=== PATIENT | female | born 1985 | race Caucasian/White ===

== ENCOUNTER 2018-11-16 08:00 | Outpatient (CLI) | payer OTHER | END 2018-11-16 23:59 | disposition home or self-care (01) | LOC: LAB.R 08:00 | PROVIDERS: ATTEND Family Medicine | DX: N12 Tubulo-interstitial nephritis, not specified as acute or chronic (principal) | CPT/HCPCS: 87086; 87181 ==

== ENCOUNTER 2018-12-11 08:00 | Outpatient (CLI) | payer OTHER ==
[2018-12-11 21:52] LABS: CANDIDA GROUP DNA POSITIVE (NEGATIVE); CANDIDA KRUSEI DNA NEGATIVE (NEGATIVE); TRICHOMONAS VAGINALIS DNA NEGATIVE (NEGATIVE)
== END 2018-12-11 23:59 | disposition home or self-care (01) ==
LOC: LAB.WCP 08:00
PROVIDERS: ATTEND Family Medicine
DX: A60.00 Herpesviral infection of urogenital system, unspecified (principal)
CPT/HCPCS: 36415; 81599; 86695; 86696; 87661; 87801

== ENCOUNTER 2019-05-20 12:00 | Outpatient (CLI) | payer OTHER ==
[2019-05-20 19:01] LABS: HCG,QUALITATIVE BLOOD NEGATIVE
[2019-05-20 19:38] LABS: FOLLICLE STIMULATING HORMONE 8.07 mIU/mL
[2019-05-20 19:39] LABS: LUTEINIZING HORMONE 9.83 mIU/mL
[2019-05-21 15:01] LABS: HIV AG/AB 4TH GEN NON-REACTIVE (NON-REACTIVE)
== END 2019-05-20 23:59 | disposition home or self-care (01) ==
LOC: LAB.WCP 12:00
PROVIDERS: ATTEND Family Medicine
DX: N76.0 Acute vaginitis (principal); Z11.3 Encounter for screening for infections with a predominantly sexual mode of transmission; N95.1 Menopausal and female climacteric states
CPT/HCPCS: 36415; 81599; 83001; 83002; 84443; 84703; 86592; 87389

== ENCOUNTER 2020-02-16 17:22 | Outpatient (CLI) | payer OTHER ==
[2020-02-16 19:29] LABS: TRICHOMONAS VAGINALIS DNA NEGATIVE (NEGATIVE)
== END 2020-02-16 23:59 | disposition home or self-care (01) ==
LOC: LAB.R 17:22
PROVIDERS: ATTEND Obstetrics & Gynecology
DX: Z11.3 Encounter for screening for infections with a predominantly sexual mode of transmission (principal)
CPT/HCPCS: 87491; 87591; 87661

== ENCOUNTER 2020-03-10 11:55 | Outpatient (CLI) | payer OTHER ==
[2020-03-10 12:15] LABS: BASOPHILS % (AUTO) 0.5 %; EOSINOPHILS # (AUTO) 0.2 10^3/uL (0.0-0.7); HGB - HEMOGLOBIN 14.6 g/dL (12.0-16.0); LYMPHOCYTES # (AUTO) 1.9 10^3/uL (1.5-3.5); LYMPHOCYTES % (AUTO) 32.8 %; MEAN CORPUSCULAR HGB CONC 34.6 g/dL (32.0-36.0); MEAN CORPUSCULAR VOLUME 92.5 fL (81.0-99.0); MEAN PLATELET VOLUME 9.4 fL (7.9-10.8); MONOCYTES # (AUTO) 0.5 10^3/uL (0.0-1.0); MONOCYTES % (AUTO) 9.4 %; NEUTROPHILS # (AUTO) 3.1 10^3/uL (1.5-6.6); NEUTROPHILS % (AUTO) 54.1 %; PLT - PLATELET COUNT 238 10^3/uL (130-450); RED BLOOD COUNT 4.56 10^6/uL (4.20-5.40); RED CELL DISTRIBUTION WIDTH 11.9 % (12.0-15.0); WHITE BLOOD COUNT 5.7 x10^3/uL (4.8-10.8)
== END 2020-03-10 11:56 | disposition home or self-care (01) ==
LOC: LAB 11:55
PROVIDERS: ATTEND Obstetrics & Gynecology
DX: Z01.818 Encounter for other preprocedural examination (principal); R87.811 Vaginal high risk human papillomavirus (HPV) DNA test positive; R87.612 Low grade squamous intraepithelial lesion on cytologic smear of cervix (LGSIL); E28.2 Polycystic ovarian syndrome; Z20.828 Contact with and (suspected) exposure to other viral communicable diseases
CPT/HCPCS: 36415; 85025

== ENCOUNTER 2020-03-15 10:37 | Day surgery (SDC) | payer OTHER ==
[2020-03-15] MEDS ORDERED: DEXAMETHASONE 4 MG/ML VIAL IVP ONE (10:38)
[2020-03-15] MEDS ORDERED: ePHEDrine 50 MG/ML VIAL IVP ONE (10:38)
[2020-03-15] MEDS ORDERED: LIDOCAINE-MPF 2% 5 ML VIAL IM ONE (10:38)
[2020-03-15] MEDS ORDERED: PROPOFOL 200 MG/20 ML VIAL IVP ONE (10:38)
[2020-03-15] MEDS ORDERED: GLYCOPYRROLATE 1 MG/5 ML VIAL IVP ONE (10:38)
[2020-03-15] MEDS ORDERED: MIDAZOLAM 2 MG/2 ML VIAL IVP ONE (10:38)
[2020-03-15] MEDS ORDERED: ONDANSETRON 4 MG/2 ML VIAL IVP ONE (10:38)
[2020-03-15] MEDS ORDERED: NEOSTIGMINE 1 MG/1 ML 10 ML MDV IVP ONE (10:38)
[2020-03-15] MEDS ORDERED: fentaNYL 100 MCG/2 ML VIAL IVP ONE (10:38)
[2020-03-15] MEDS ORDERED: ACETAMINOPHEN 1,000 MG/100 ML 100 ML IV ONE (10:56)
[2020-03-15] MEDS ORDERED: GABAPENTIN 400 MG CAPSULE ONE (10:57)
[2020-03-15] MEDS ORDERED: CELECOXIB 100 MG CAPSULE PO ONE (10:57)
[2020-03-15] MEDS ORDERED: PHENAZOPYRIDINE 100 MG TABLET PO ONE (11:04)
[2020-03-15 11:11] LABS: HCG UR QUAL NEGATIVE
[2020-03-15] MEDS ORDERED: CEFAZOLIN SODIUM IN 0.9 % NACL 2 GM/100 ML BAG IV ONE (11:12)
[2020-03-15] MEDS ORDERED: LACTATED RINGERS 1,000 ML IV ONE ×2 (11:22→15:25)
--- NOTE | 2020-03-15 11:41 | ANESTHESIA ---
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, abnormal PAP - Procedure LAVH, B salpigectomy, possible vaginal approach Vital Signs: Temp Pulse Resp BP Pulse Ox 37.2 C 88 16 120/67 100 03/15/20 11:00 03/15/20 11:00 03/15/20 11:00 03/15/20 11:00 03/15/20 11:00 Height: 4 ft 1 in Weight (kg): 46.1 kg Body Mass Index: 29.7 BMI Classification: Overweight - NPO >8 hours - Is Patient ?: No - Lab Results Current Lab Results: Laboratory Tests 03/15/20 11:19: POC Whole Bld Glucose 97 Lab results reviewed: Yes Home Medications and Allergies Home Medications: Ambulatory Orders Clindamycin Phos/Benzoyl Perox [Clind pH-Benzoyl Kumar 1.2-2.5%] 1 applic TP DAILY 03/07/20 Spironolactone 25 mg PO BID 03/07/20 Clindamycin Phos/Benzoyl Perox [Clind pH-Benzoyl Kumar 1.2-2.5%] 1 applic TP DAILY 03/07/20 Spironolactone 25 mg PO BID 03/07/20 Allergies/Adverse Reactions: Allergies Allergy/AdvReac Type Severity Reaction Status Date / Time Sulfa (Sulfonamide Allergy neck Verified 03/07/20 14:56 Antibiotics) glands swelling gluten AdvReac joint Verified 03/07/20 14:56 pain, stomach issues Anes History & Medical History - Anesthetic History Anesthesia Complications: reports: No previous complications Family history of Anesthesia Complications: Denies Family history of Malignant Hyperthermia: Denies - Medical History Cardiovascular: reports: High cholesterol Pulmonary: reports: None Gastrointestinal: reports: Hemorrhoids Urinary: reports: None Musculoskeletal: reports: None Endocrine/Autoimmune: reports: None Skin: reports: Other - Surgical History General: Other Exam General: Alert, Oriented x3, Cooperative Dental: WNL Mouth Opening: Greater than 4 Fingerbreadths Neck Mobility: Normal Mallampati classification: II Thyromental Distance: greater than 6 cm Respiratory: Lungs clear, Normal breath sounds, No respiratory distress Cardiovascular: Regular rate Neurological: Normal speech Mental/Cognitive Status: Alert/Oriented X3, Normal for patient Cognitive Status: Within normal limits Plan Anesthesia Type: General, Transverse Abdominis Plane (TAP) Block (possible) Consent for Procedure(s) Verified and Reviewed: Yes Code Status: Attempt Resuscitation ASA classification: 1-Healthy patient Is this case an emergency?: No
[2020-03-15] MEDS ORDERED: BUPIVACAINE 0.25%-EPI 1:200000 PF 30 ML VIAL ONE (12:49)
[2020-03-15] MEDS ORDERED: METHYLENE BLUE 0.5% 50 MG/10 ML AMPULE ONE (12:49)
[2020-03-15] MEDS ORDERED: VASOPRESSIN 20 UNIT/ML VIAL ONE (12:51)
[2020-03-15] MEDS ORDERED: VASOPRESSIN 20 UNIT/ML VIAL IVP ONE (13:55)
[2020-03-15] MEDS ORDERED: LIDOCAINE 2% URO-JET 5 ML SYRINGE UR ONE (15:11)
--- NOTE | 2020-03-15 15:21 | OPERATIVE REPORT ---
Operative Report - General Procedure Date: 03/15/20 Planned Procedure: Laparoscopic assisted vaginal hysterectomy vs total vaginal hysterectomy, bilateral salpingectomy, and cystoscopy Pre-Op Diagnosis: Recurrent cervical dysplasia, PCOS, dysfunctional uterine bleeding Procedure Performed: Total vaginal hysterectomy, bilateral salpingectomy, and cystoscopy Post Op Diagnosis: Same - Procedure Note Primary Surgeon: Ngoc Rizzo MD Secondary Surgeon: Maria Esther Mcclendon MD Anesthesia Provider: Kartik Kim CRNA Anesthesia Technique: General ET tube Pathology: Uterus with cervix and bilateral Fallopian tubes (removed separately), sent as a single specimen IV Fluids (mL): 1,100 Estimated Blood Loss (mL): 25 Urine Output (mL): 0 (discarded without recording volume) Indications: Patient is a 34 yo with recurrent cervical dysplasia, PCOS, and dysfunctional uterine bleeding. She has completed her childbearing and desires definitive surgical management via hysterectomy. Findings: Normal uterus, Fallopian tubes, and ovaries. Cystoscopy showed bilateral ureteral jets at close of procedure. Cystoscopic survey of bladder was devoid of suture or injury. Complications: None - Other Other Information/Narrative: Consent was again confirmed. The patient was brought to the OR and underweight general anesthesia. She was placed in dorsal lithotomy with legs supported in yellowfin stirrups. Bimanual exam was performed. She was then prepared and draped in the usual steri le fashion. Stinson catheter was in place and backfilled with 50 cc of dilute methylene blue and clamped. SCDs were confirmed to be in place and operating. A surgical time out was performed. Administration of 2g IV cefazolin was confirmed. A weighted speculum was placed in the posterior vaginal vault. The cervix was grasped with a a double toothed tenaculum clamp on both its anterior and posteri or lips. A total of 40 cc of 20mg vasopressin/100 cc was injected in a circumferential direction around the cervix. With downward traction, we made a circumferential incision of the vaginal epithelium at the junction of the cervix with the Bovie cautery to aid entry into the peritoneum. The overlying vaginal epithelium was dissected off the underlying cervical stroma in an combination of sharp and blunt dissection. The cervicovesical space was then created by both blunt and sharp dissection. At no point was there spillage of methylene blue. Entrance into the anterior space was completed and a right angle retractor was inserted under the bladder. The posterior cul-de-sac was entered sharply in the same manner. A long necked weighted speculum was then placed in the vagina through the posterior space. The uterosacral ligaments were clamped with Khari clamps and ligated with #0 Vicryl suture bilaterally. A moistened sponge stick was placed in the posterior cul de sac to retract the bowel and patient was placed in Trendelenburg position. A laparoscopic Ligasure bipolar device was then used to seal and ligate each pedicle. The uterosacral ligaments were suture ligated as above. The cardinal ligaments, uterine vessels, broad ligaments, and utero-ovarian pedicles were sealed and ligated with the Ligasure device. The ovaries were visualized on either side. The left Fallopian tube was grasped with [place] clamps, elevated and the underlying mesosalpinx was sealed and divided. The Fallopian tube was removed from the surgical field. This process was repeated on the right Fa llopian tube. Both tubes were removed in the entirely and sent with the uterus as a single pathology specimen. Ovaries were inspected as with findings noted above. We then removed the weighted duckbill speculum and placed a regular speculum in the vaginal vault and visualized the entire area. We inspected for hemostasis, and this was secured. The peritoneum was closed with 2-0 Vicryl with a running pursestring suture. The uterosacral ligaments were then fixed to the anterior and posterior vaginal cuff margins to aid in vaginal support. The vaginal cuff was then closed with interrupted figure of 8 sutures using 0-Vicryl. Hemostasis was excellent. The vaginal vault was cleared of debris. The sponge count was correct times 2 at this time. A Stinson catheter was then unclamped. The Stinson was removed. The cystoscope was inserted and the bladder was drained and then distended with normal saline. The survey of all of the bladder surfaces was completed and was noted to be absent of suture or trauma. Ureteral jets were observed directly bilaterally. Bladder was drained and cystoscope was removed. Stinson catheter was replaced. All instruments were removed from the vagina and hunter hemostasis was noted. Lidocaine 2% jelly was applied to the vaginal vault and urethral opening. The patients procedure was terminated. She was sent to the Recovery Room in good condition. Dr. Mcclendon assisted with retraction, assistance with suturing, cystoscopy, and sharing of surgical insight.
[2020-03-15] MEDS ORDERED: ePHEDrine 50 MG/ML VIAL IVP PRN (15:31)
[2020-03-15] MEDS ORDERED: NALOXONE 0.4 MG/ML VIAL IVP PRN (15:31)
[2020-03-15] MEDS ORDERED: ONDANSETRON 4 MG/2 ML VIAL IVP PRN (15:31)
[2020-03-15] MEDS ORDERED: HYDROmorphone 0.5 MG/0.5 ML SYRINGE IVP PRN ×2 (15:31→15:39)
[2020-03-15] MEDS ORDERED: MORPHINE 2 MG/ML CARPUJECT IVP PRN (15:31)
[2020-03-15] MEDS ORDERED: ATROPINE ABBOJECT 1 MG/10 ML SYRINGE IVP PRN (15:31)
[2020-03-15] MEDS ORDERED: METOCLOPRAMIDE 10 MG/2 ML VIAL IVP PRN (15:31)
[2020-03-15] MEDS ORDERED: fentaNYL 100 MCG/2 ML VIAL IVP PRN (15:31)
[2020-03-15] MEDS ORDERED: SIMETHICONE CHEW 80 MG TABLET PO PRN (15:35)
[2020-03-15] MEDS ORDERED: oxyCODONE 5 MG TABLET PO PRN (15:35)
[2020-03-15] MEDS ORDERED: ONDANSETRON ODT 4 MG TABLET TL PRN (15:35)
[2020-03-15] MEDS ORDERED: fentaNYL 100 MCG/2 ML VIAL ONE (15:51)
[2020-03-15] MEDS ORDERED: LACTATED RINGERS 1,000 ML IV SCH (16:00)
--- NOTE | 2020-03-15 16:11 | ANESTHESIA POST OP EVALUATION ---
Anesthesia Post Eval - Post Anesthesia Eval Vitals: Last Vital Signs Temp 36.6 C 03/15/20 15:55 Pulse 64 03/15/20 15:55 Resp 13 03/15/20 15:55 BP 115/63 03/15/20 15:55 Pulse Ox 99 03/15/20 15:55 CV Function Including HR & BP: positive: Stable Pain Control: positive: Satisfactory Nausea & Vomiting: positive: Negative Mental Status: positive: Patient Participates Respiratory Status: Airway Patent Hydration Status: Satisfactory Anesthesia Complications: positive: None
[2020-03-15] MEDS: ACETAMINOPHEN 500 MG TABLET PO SCH (18:26)
[2020-03-15] MEDS: KETOROLAC 30 MG/ML VIAL IVP SCH ×2 (18:26→22:30)
[2020-03-15] MEDS: LACTATED RINGERS 1,000 ML IV SCH (18:27)
[2020-03-15] MEDS: GABAPENTIN 100 MG CAPSULE PO SCH (21:46)
[2020-03-15] MEDS: DOCUSATE SODIUM 100 MG CAPSULE PO SCH (21:47)
[2020-03-16] MEDS: ACETAMINOPHEN 500 MG TABLET PO SCH ×2 (00:14→09:18)
[2020-03-16] MEDS: LACTATED RINGERS 1,000 ML IV SCH (00:17)
[2020-03-16] MEDS: GABAPENTIN 100 MG CAPSULE PO SCH (05:06)
[2020-03-16] MEDS: KETOROLAC 30 MG/ML VIAL IVP SCH ×2 (05:06→10:44)
[2020-03-16 05:59] LABS: BASOPHILS % (AUTO) 0.2 %; HGB - HEMOGLOBIN 11.8 g/dL (12.0-16.0); LYMPHOCYTES % (AUTO) 7.8 %; MEAN CORPUSCULAR HEMOGLOBIN 31.8 pg (27.0-31.0); MEAN CORPUSCULAR HGB CONC 33.9 g/dL (32.0-36.0); MEAN CORPUSCULAR VOLUME 93.8 fL (81.0-99.0); MEAN PLATELET VOLUME 9.9 fL (7.9-10.8); MONOCYTES # (AUTO) 0.9 10^3/uL (0.0-1.0); MONOCYTES % (AUTO) 7.4 %; NEUTROPHILS # (AUTO) 10.5 10^3/uL (1.5-6.6); PLT - PLATELET COUNT 197 10^3/uL (130-450); RED BLOOD COUNT 3.71 10^6/uL (4.20-5.40); WHITE BLOOD COUNT 12.5 x10^3/uL (4.8-10.8)
[2020-03-16 08:51] VITALS: BP 105/41
[2020-03-16] MEDS ORDERED: ENOXAPARIN 40 MG/0.4 ML SYRINGE SUBQ SCH (09:00)
[2020-03-16] MEDS: DOCUSATE SODIUM 100 MG CAPSULE PO SCH (09:18)
--- NOTE | 2020-03-16 09:59 | PROVIDER PROGRESS NOTE ---
Subjective - Prog Note Date Prog Note Date: 03/16/20 Prog Note Time: 09:57 - Subjective Subjective: Patient is doing remarkably well. Up and ambualting, tolerating po, pain well managed. Mininal bleeding. Stinson catheter in place. Objective - Vital Signs/Intake & Output Reviewed Vital Signs: Yes Vital Signs: Vital Signs x48h Temp Pulse Resp BP Pulse Ox 03/16/20 08:51 98.4 F 68 105/41 L 98 03/16/20 05:07 98.4 F 98 16 99/49 L 96 Intake & Output: Intake & Output 03/13/20 03/14/20 03/15/20 03/16/20 23:59 23:59 23:59 23:59 Intake Total 950 823.333 Output Total 1425 2150 Balance -475 -1326.667 - Objective General Appearance: positive: No acute distress Neck: positive: Nml inspection Respiratory: positive: No respiratory distress Cardiovascular: positive: Other (RR) Abdomen: positive: Non-tender, No distention, Other (soft) Skin: positive: Color nml, Dry Extremities: positive: Non-tender, No pedal edema Neurologic/Psychiatric: positive: Oriented x3 Comments/Other: Stinson catheter removed. More than 550 cc in one hour - Lab Results Fish Bones: 03/16/20 05:15 Other Labs: Lab Results x24hrs 03/16/20 03/15/20 03/15/20 Range/Units 05:15 11:19 10:55 WBC 12.5 H (4.8-10.8) x10^3/uL RBC 3.71 L (4.20-5.40) 10^6/uL Hgb 11.8 L (12.0-16.0) g/dL Hct 34.8 L (37.0-47.0) % MCV 93.8 (81.0-99.0) fL MCH 31.8 H (27.0-31.0) pg MCHC 33.9 (32.0-36.0) g/dL RDW 12.0 (12.0-15.0) % Plt Count 197 (130-450) 10^3/uL MPV 9.9 (7.9-10.8) fL Neut # (Auto) 10.5 H (1.5-6.6) 10^3/uL Lymph # (Auto) 1.0 L (1.5-3.5) 10^3/uL [place] # (Auto) 0.9 (0.0-1.0) 10^3/uL Eos # (Auto) 0.0 (0.0-0.7) 10^3/uL Baso # (Auto) 0.0 (0.0-0.1) 10^3/uL Absolute Nucleated RBC 0.00 x10^3/uL Nucleated RBC % 0.0 /100WBC POC Whole Bld Glucose 97 (70 - 100) mg/dL Ur Specific [place] 1.015 (1.002-1.030) Urine HCG, Qual NEGATIVE Assessment/Plan - Problem List (1) S/P hysterectomy Impression: POD#1 s/p TVH and salpingectomy Stinson removed during exam Awaiting void. Once voids with less than 50% PVR, then cleared for discharge Routine DC instructions given DC meds sent electronically
== END 2020-03-16 12:30 | disposition home or self-care (01) ==
LOC: SDS 10:37 → MS2 16:13 → SDS 03-16 12:30
PROVIDERS: ATTEND Obstetrics & Gynecology
PROC: 0UT7FZZ Resection of Bilateral Fallopian Tubes, Via Natural or Artificial Opening With Percutaneous Endoscopic Assistance (ICD-10-PCS; 2020-03-15)
PROC: 0UT9FZZ Resection of Uterus, Via Natural or Artificial Opening With Percutaneous Endoscopic Assistance (ICD-10-PCS; principal; 2020-03-15 12:15)
DX: N87.0 Mild cervical dysplasia (principal); E28.2 Polycystic ovarian syndrome; N93.8 Other specified abnormal uterine and vaginal bleeding
CPT/HCPCS: 36415; 58552; 81025; 85025; A9270; J0131; J0690; J1650; J7120

== ENCOUNTER 2020-03-28 07:00 | Outpatient (CLI) | payer OTHER | END 2020-03-28 23:59 | disposition home or self-care (01) | LOC: LAB.R 07:00 | PROVIDERS: ATTEND Obstetrics & Gynecology | DX: N30.01 Acute cystitis with hematuria (principal) | CPT/HCPCS: 87086 ==

== ENCOUNTER 2020-04-13 08:00 | Outpatient (CLI) | payer OTHER ==
[2020-04-14 20:16] LABS: CANDIDA GROUP DNA NEGATIVE (NEGATIVE); CANDIDA KRUSEI DNA NEGATIVE (NEGATIVE); TRICHOMONAS VAGINALIS DNA NEGATIVE (NEGATIVE)
== END 2020-04-14 23:59 | disposition home or self-care (01) ==
LOC: LAB.R 08:00
PROVIDERS: ATTEND Obstetrics & Gynecology
DX: N76.0 Acute vaginitis (principal)
CPT/HCPCS: 87661; 87801

== ENCOUNTER 2020-04-17 18:39 | Outpatient (CLI) | payer OTHER ==
--- NOTE | 2020-04-18 07:44 | Ultrasound Report ---
PROCEDURE: Pelvic Complete INDICATIONS: OVIARIAN CYST TECHNIQUE: Real-time transabdominal scanning was performed of the pelvic organs, with image documentation. Charity ent declined transvaginal imaging. COMPARISON: 03/28/2020 FINDINGS: Uterus: Uterus is surgically absent. Ovaries: Ovaries are within normal limits by transabdominal imaging. The right ovary measures 2.2 x 1.8 x 2.7 cm for a volume of 5.5 cc. The left ovary measures 1.9 x 2.1 x 3.3 cm for a volume of 6.9 c c. No associated adnexal masses or paraovarian fluid, though the exam is suboptimal secondary to field sabdominal scanning only. Other: No free pelvic fluid. Limited scanning through the kidneys shows no hydronephrosis. IMPRESSION: 1. The right paraovarian structure seen previously was not visualized on the current study, possibly due to lack of transvaginal imaging, patient declined. 2. No suspicious adnexal masses or free fluid. 3. Hysterectomy. Reviewed by: Ly Tapia MD on 04/17/2020 8:07 PM PDT Approved by: Ly Tapia MD on 04/17/2020 8:07 PM PDT Station ID: [id number]
== END 2020-04-17 18:40 | disposition home or self-care (01) ==
LOC: DI 18:39
PROVIDERS: ATTEND Obstetrics & Gynecology
DX: N83.209 Unspecified ovarian cyst, unspecified side (principal)
CPT/HCPCS: 76856

== ENCOUNTER 2022-07-09 14:56 | Outpatient (CLI) | payer OTHER ==
[2022-07-09 15:15] LABS: BASOPHILS % (AUTO) 0.5 %; EOSINOPHILS # (AUTO) 0.1 10^3/uL (0.0-0.7); EOSINOPHILS % (AUTO) 1.1 %; HCT - HEMATOCRIT 42.9 % (37.0-47.0); HGB - HEMOGLOBIN 14.1 g/dL (12.0-16.0); LYMPHOCYTES % (AUTO) 24.2 %; MEAN CORPUSCULAR HEMOGLOBIN 30.1 pg (27.0-31.0); MEAN CORPUSCULAR HGB CONC 32.9 g/dL (32.0-36.0); MEAN CORPUSCULAR VOLUME 91.5 fL (81.0-99.0); MEAN PLATELET VOLUME 9.6 fL (7.9-10.8); MONOCYTES # (AUTO) 0.5 10^3/uL (0.0-1.0); MONOCYTES % (AUTO) 6.2 %; NEUTROPHILS # (AUTO) 5.7 10^3/uL (1.5-6.6); NEUTROPHILS % (AUTO) 67.8 %; PLT - PLATELET COUNT 276 10^3/uL (130-450); RED BLOOD COUNT 4.69 10^6/uL (4.20-5.40); RED CELL DISTRIBUTION WIDTH 12.2 % (12.0-15.0); WHITE BLOOD COUNT 8.4 x10^3/uL (4.8-10.8)
[2022-07-09 15:26] LABS: ALBUMIN 4.9 g/dL (3.2-5.5); ALBUMIN/GLOBULIN RATIO 1.6 (1.0-2.2); ALKALINE PHOSPHATASE 50 IU/L (42-121); ALT ALANINE AMINOTRANSFERASE 19 IU/L (10-60); AST ASPARTATE AMINOTRANSFERASE 24 IU/L (10-42); BILIRUBIN,TOTAL 1.1 mg/dL (0.2-1.0); BUN - BLOOD UREA NITROGEN 12 mg/dL (6-20); CALCIUM 9.4 mg/dL (8.5-10.3); CARBON DIOXIDE - CO2 28 mmol/L (21-32); CHLORIDE 98 mmol/L (101-111); CHOL/HDL RATIO 2.8 (<4.4); CHOLESTEROL 224 mg/dL; CREATININE 0.8 mg/dL (0.4-1.0); GFR - MDRD 82 (>89); GLUCOSE 94 mg/dL (70-100); HDL CHOLESTEROL 80 mg/dL; POTASSIUM 3.5 mmol/L (3.5-5.0); SODIUM 136 mmol/L (135-145); TOTAL PROTEIN 7.9 g/dL (6.7-8.2); TRIGLYCERIDES 28 mg/dL
[2022-07-09 15:40] LABS: THYROID STIMULATING HORMONE 0.58 uIU/mL (0.34-5.60)
== END 2022-07-09 14:57 | disposition home or self-care (01) ==
LOC: LAB 14:56
PROVIDERS: ATTEND Physician Assistant
DX: Z13.9 Encounter for screening, unspecified (principal); Z13.220 Encounter for screening for lipoid disorders; Z13.29 Encounter for screening for other suspected endocrine disorder
CPT/HCPCS: 36415; 80053; 80061; 83721; 84443; 85025